=== PATIENT | female | born 1965 | race Caucasian/White ===

== ENCOUNTER 2021-09-02 12:08 | Inpatient (IN) | payer MEDICAID, OTHER ==
[~2021-09-02] VITALS: Ht 167.6 cm; Wt 109.0 kg
[2021-09-02 12:55] LABS: Basophils # (auto) 0.1 10 ^3/uL (0-0.2); Basophils % (auto) 0.8 % (0.0-2.0); Eosinophils # (auto) 0 10 ^3/uL (0-0.8); Eosinophils % (auto) 0.2 % (0.0-7.0); Hematocrit 50.2 % (36.0-46.0); Hemoglobin 16.6 g/dL (12.2-16.2); Lymphocytes # (auto) 1.5 10 ^3/uL (0.4-5.4); Lymphocytes % (auto) 9.5 % (10.0-50.0); Mean Corpuscular Hemoglobin 29.1 pg (28.0-32.0); Mean Corpuscular Hgb Conc. 33.1 g/dL (32.0-36.0); Mean Corpuscular Volume 87.8 fL (80.0-100.0); Monocytes # (auto) 0.9 10 ^3/uL (0-1.3); Monocytes % (auto) 6.1 % (0.0-12.0); Neutrophils # (auto) 12.9 10 ^3/uL (1.6-8.6); Neutrophils % (auto) 83.4 % (37.0-80.0); Nucleated Red Blood Cells % 0.3 %; Red Blood Cells 5.71 10^6/uL (4.0-5.20); Red Cell Distribution Width 15.1 % (11.8-14.3); White Blood Cell 15.4 10^3/uL (4.4-10.8)
[2021-09-02 13:14] LABS: Alanine Aminotransferase 18 U/L (13-56); Albumin 3.8 g/dL (3.4-5.0); Anion Gap 18 (5-15); Aspartate Aminotransferase 10 U/L (15-37); Blood Urea Nitrogen 38 mg/dL (7-18); Calcium 10.2 mg/dL (8.5-10.1); Carbon Dioxide 16 mmol/L (21-32); Chloride 113 mmol/L (98-107); GFR African American 102 mL/min; GFR Non-African American 84 mL/min; Glucose 306 mg/dL (74-106); Magnesium 2.1 mg/dL (1.6-2.6); Potassium 3.9 mmol/L (3.5-5.1); Sodium 147 mmol/L (136-145)
[2021-09-02 13:17] LABS: Alkaline Phosphatase 101 U/L (45-117); Bilirubin, Total 0.8 mg/dL (0.2-1.0); Total Protein 7.9 g/dL (6.4-8.2)
[2021-09-02] MEDS ORDERED: SODIUM CHLORIDE 0.9% 1,000 ML IV ONE ×2 (16:00→17:40)
[2021-09-02 17:30] LABS: Urine Bacteria NONE SEEN /hpf (None Seen); Urine Blood 3+ /uL (Negative); Urine Mucus FEW (None Seen); Urine Specific Gravity 1.032 (1.001-1.035); Urine WBC 157 /hpf (0 - 5)
[2021-09-02] MEDS ORDERED: cefTRIAXone 1GM/50ML D5W 50 ML IV ONE (18:45)
[2021-09-02] MEDS ORDERED: ACETAMINOPHEN 325 MG TAB PO PRN (23:00)
[2021-09-02] MEDS ORDERED: DEXTROSE (50%) 50ML SYRG IV PRN (23:00)
[2021-09-02] MEDS ORDERED: InsuLIN R (HUMAN) 100 UNITS in SODIUM CHL 0.9% 99 ML IV SCH (23:00)
[2021-09-02] MEDS ORDERED: HYDROcodone-ACET 5/325MG TAB PO PRN (23:00)
[2021-09-02] MEDS ORDERED: IOHEXOL 350 MG/ML 100ML IJ ONE (23:24)
[2021-09-02] MEDS ORDERED: MORPHINE SULFATE INJ 2 MG/ml SYRG IV PRN (23:30)
[2021-09-02] MEDS ORDERED: ONDANSETRON HCL 4 MG/2 ML VIAL IV PRN (23:30)
[2021-09-02 23:38] LABS: Basophils # (auto) 0.1 10 ^3/uL (0-0.2); Basophils % (auto) 0.8 % (0.0-2.0); Eosinophils # (auto) 0 10 ^3/uL (0-0.8); Eosinophils % (auto) 0.2 % (0.0-7.0); Hematocrit 44.2 % (36.0-46.0); Hemoglobin 14.7 g/dL (12.2-16.2); Lymphocytes # (auto) 1.4 10 ^3/uL (0.4-5.4); Lymphocytes % (auto) 11.8 % (10.0-50.0); Mean Corpuscular Hemoglobin 29.2 pg (28.0-32.0); Mean Corpuscular Hgb Conc. 33.1 g/dL (32.0-36.0); Mean Corpuscular Volume 88.1 fL (80.0-100.0); Monocytes # (auto) 0.9 10 ^3/uL (0-1.3); Monocytes % (auto) 7.7 % (0.0-12.0); Neutrophils # (auto) 9.3 10 ^3/uL (1.6-8.6); Neutrophils % (auto) 79.5 % (37.0-80.0); Red Blood Cells 5.02 10^6/uL (4.0-5.20); Red Cell Distribution Width 14.9 % (11.8-14.3); White Blood Cell 11.7 10^3/uL (4.4-10.8)
[2021-09-02] MEDS: SODIUM CHLORIDE 0.9% 1,000 ML IV SCH (23:47)
[2021-09-03] MEDS ORDERED: ACCU-CHEK COMFORT CURVE STRIP VI SCH
[2021-09-03 00:01] LABS: BUN/Creatinine Ratio 41.9; Calcium 9.2 mg/dL (8.5-10.1); Magnesium 1.9 mg/dL (1.6-2.6); Phosphorus 2.7 mg/dL (2.5-4.90); Potassium 3.5 mmol/L (3.5-5.1)
[2021-09-03] MEDS ORDERED: InsuLIN REG 1unit/0.01ml Soln (100units/ml) ONE (00:16)
[2021-09-03 02:56] LABS: BUN/Creatinine Ratio 46.6; Calcium 9.5 mg/dL (8.5-10.1); Potassium 4.2 mmol/L (3.5-5.1)
[2021-09-03] MEDS ORDERED: SODIUM CHLORIDE 0.9% 1,000 ML IV SCH (05:00)
[2021-09-03] MEDS: SODIUM CHLORIDE 0.9% 1,000 ML IV SCH (05:56)
[2021-09-03] MEDS: ACCU-CHEK COMFORT CURVE STRIP VI SCH ×4 (05:59→23:59)
[2021-09-03] MEDS: InsuLIN REG 1unit/0.01ml Soln (100units/ml) SC SCH ×3 (06:04→18:03)
[2021-09-03 07:50] LABS: Basophils # (auto) 0 10 ^3/uL (0-0.2); Basophils % (auto) 0.5 % (0.0-2.0); Eosinophils # (auto) 0 10 ^3/uL (0-0.8); Eosinophils % (auto) 0.4 % (0.0-7.0); Hematocrit 47.9 % (36.0-46.0); Hemoglobin 15.8 g/dL (12.2-16.2); Lymphocytes # (auto) 1.5 10 ^3/uL (0.4-5.4); Lymphocytes % (auto) 13.8 % (10.0-50.0); Mean Corpuscular Hemoglobin 29.2 pg (28.0-32.0); Mean Corpuscular Hgb Conc. 33.1 g/dL (32.0-36.0); Mean Corpuscular Volume 88.3 fL (80.0-100.0); Monocytes # (auto) 0.9 10 ^3/uL (0-1.3); Monocytes % (auto) 8.3 % (0.0-12.0); Neutrophils # (auto) 8.2 10 ^3/uL (1.6-8.6); Nucleated Red Blood Cells % 0.3 %; Red Blood Cells 5.42 10^6/uL (4.0-5.20); Red Cell Distribution Width 15.1 % (11.8-14.3); White Blood Cell 10.6 10^3/uL (4.4-10.8)
[2021-09-03 08:07] LABS: Calcium 9.7 mg/dL (8.5-10.1); Magnesium 2.1 mg/dL (1.6-2.6); Potassium 3.7 mmol/L (3.5-5.1)
[2021-09-03 08:10] LABS: BUN/Creatinine Ratio 39.7; Phosphorus 2.9 mg/dL (2.5-4.90)
[2021-09-03 10:16] VITALS: BP 141/86
[2021-09-03] MEDS: cefTRIAXone 1GM/50ML D5W 50 ML IV SCH (10:38)
[2021-09-03 10:39] LABS: BUN/Creatinine Ratio 33.3; Calcium 9.8 mg/dL (8.5-10.1); Potassium 3.2 mmol/L (3.5-5.1)
[2021-09-03] MEDS ORDERED: SOD CHL 0.45% 1,000 ML IV SCH (10:45)
[2021-09-03 11:41] VITALS: BP 141/86
[2021-09-03] MEDS: ENOXAPARIN SOD 40 MG/0.4 ML SYRINGE SC SCH (12:39)
[2021-09-03] MEDS: SOD CHL 0.45% 1,000 ML IV SCH (12:40)
[2021-09-03] MEDS: POTASSIUM CHL 20MEQ/100ML 100 ML IV SCH ×2 (12:40→15:01)
[2021-09-03 14:16] LABS: BUN/Creatinine Ratio 46.1; Calcium 9.5 mg/dL (8.5-10.1); Potassium 3.4 mmol/L (3.5-5.1)
[2021-09-03 14:35] VITALS: BP 140/77
[2021-09-03 17:45] VITALS: BP 144/80
[2021-09-03 20:00] VITALS: BP 150/82
[2021-09-03 22:00] VITALS: BP 150/82
[2021-09-03 22:44] LABS: BUN/Creatinine Ratio 41.8; Calcium 9.3 mg/dL (8.5-10.1); Potassium 3.4 mmol/L (3.5-5.1)
[2021-09-04] MEDS: InsuLIN REG 1unit/0.01ml Soln (100units/ml) SC SCH ×5 (00:03→23:32)
[2021-09-04] MEDS: SOD CHL 0.45% 1,000 ML IV SCH ×3 (02:36→18:38)
[2021-09-04 05:00] VITALS: BP 150/85
[2021-09-04] MEDS ORDERED: SODIUM CHLORIDE 0.9% 500 ML IV ONE (06:00)
[2021-09-04 06:31] LABS: Basophils # (auto) 0 10 ^3/uL (0-0.2); Basophils % (auto) 0.4 % (0.0-2.0); Eosinophils # (auto) 0.2 10 ^3/uL (0-0.8); Eosinophils % (auto) 1.9 % (0.0-7.0); Hematocrit 40.4 % (36.0-46.0); Hemoglobin 13.7 g/dL (12.2-16.2); Lymphocytes # (auto) 1.9 10 ^3/uL (0.4-5.4); Lymphocytes % (auto) 21.5 % (10.0-50.0); Mean Corpuscular Hemoglobin 29.9 pg (28.0-32.0); Mean Corpuscular Hgb Conc. 33.9 g/dL (32.0-36.0); Mean Corpuscular Volume 88.3 fL (80.0-100.0); Monocytes # (auto) 0.8 10 ^3/uL (0-1.3); Neutrophils # (auto) 5.9 10 ^3/uL (1.6-8.6); Neutrophils % (auto) 67.2 % (37.0-80.0); Nucleated Red Blood Cells % 0.1 %; Red Blood Cells 4.58 10^6/uL (4.0-5.20); Red Cell Distribution Width 14.9 % (11.8-14.3); White Blood Cell 8.7 10^3/uL (4.4-10.8)
[2021-09-04] MEDS: ACCU-CHEK COMFORT CURVE STRIP VI SCH ×4 (06:38→23:32)
[2021-09-04 06:48] LABS: BUN/Creatinine Ratio 46.2; Calcium 8.7 mg/dL (8.5-10.1); Magnesium 1.8 mg/dL (1.6-2.6); Phosphorus 3.4 mg/dL (2.5-4.90)
[2021-09-04 06:54] LABS: Potassium 2.9 mmol/L (3.5-5.1)
[2021-09-04 08:00] VITALS: BP_SYST 136; BP_SYST 150; BP_DIAS 82; BP_DIAS 83
[2021-09-04] MEDS: ENOXAPARIN SOD 40 MG/0.4 ML SYRINGE SC SCH (09:11)
[2021-09-04] MEDS: cefTRIAXone 1GM/50ML D5W 50 ML IV SCH (09:11)
[2021-09-04 09:17] LABS: Calcium 8.8 mg/dL (8.5-10.1)
[2021-09-04 11:59] VITALS: BP 151/88
[2021-09-04] MEDS: POTASSIUM CHL 20MEQ/100ML 100 ML IV SCH ×3 (13:48→18:38)
[2021-09-04 14:17] LABS: BUN/Creatinine Ratio 35.6; Calcium 8.9 mg/dL (8.5-10.1); Potassium 3.1 mmol/L (3.5-5.1)
[2021-09-04 16:00] VITALS: BP 152/86
[2021-09-04] MEDS: TEMAZEPAM 15 MG CAP PO PRN (21:22)
[2021-09-04 21:53] VITALS: BP 150/100
[2021-09-04 23:24] LABS: Folate (Folic Acid) 12.32 ng/mL (5.38-24)
[2021-09-05] VITALS (7 sets, daily range): BP systolic 137–164; BP diastolic 74–101
[2021-09-05] MEDS: TEMAZEPAM 15 MG CAP PO PRN (01:48)
[2021-09-05] MEDS: SOD CHL 0.45% 1,000 ML IV SCH ×2 (04:31→13:26)
[2021-09-05] MEDS: hydrALAZINE HCL 10 MG TAB PO PRN (05:58)
[2021-09-05] MEDS: ACCU-CHEK COMFORT CURVE STRIP VI SCH ×3 (06:41→18:16)
[2021-09-05] MEDS: InsuLIN REG 1unit/0.01ml Soln (100units/ml) SC SCH ×3 (06:41→18:16)
[2021-09-05 07:16] LABS: Basophils # (auto) 0 10 ^3/uL (0-0.2); Basophils % (auto) 0.3 % (0.0-2.0); Eosinophils # (auto) 0.2 10 ^3/uL (0-0.8); Eosinophils % (auto) 2.6 % (0.0-7.0); Hematocrit 41.5 % (36.0-46.0); Hemoglobin 14.1 g/dL (12.2-16.2); Lymphocytes # (auto) 1.5 10 ^3/uL (0.4-5.4); Lymphocytes % (auto) 18.2 % (10.0-50.0); Mean Corpuscular Hemoglobin 29.5 pg (28.0-32.0); Mean Corpuscular Hgb Conc. 33.9 g/dL (32.0-36.0); Monocytes # (auto) 0.6 10 ^3/uL (0-1.3); Monocytes % (auto) 7.1 % (0.0-12.0); Neutrophils # (auto) 5.8 10 ^3/uL (1.6-8.6); Neutrophils % (auto) 71.8 % (37.0-80.0); Nucleated Red Blood Cells % 0.2 %; Red Blood Cells 4.77 10^6/uL (4.0-5.20); Red Cell Distribution Width 14.8 % (11.8-14.3)
[2021-09-05 07:22] LABS: Magnesium 1.5 mg/dL (1.6-2.6); Phosphorus 3.6 mg/dL (2.5-4.90)
[2021-09-05] MEDS: cefTRIAXone 1GM/50ML D5W 50 ML IV SCH (09:18)
[2021-09-05] MEDS: ENOXAPARIN SOD 40 MG/0.4 ML SYRINGE SC SCH (09:19)
[2021-09-05] MEDS: HALOPERIDOL 1 MG TAB PO SCH ×2 (13:40→23:31)
[2021-09-06] MEDS: ACCU-CHEK COMFORT CURVE STRIP VI SCH ×5 (00:46→23:47)
[2021-09-06] MEDS: InsuLIN REG 1unit/0.01ml Soln (100units/ml) SC SCH ×5 (00:55→23:49)
[2021-09-06] MEDS: SOD CHL 0.45% 1,000 ML IV SCH ×2 (03:43→16:36)
[2021-09-06 05:00] VITALS: BP 146/82
[2021-09-06] MEDS: HALOPERIDOL 1 MG TAB PO SCH ×2 (06:06→18:00)
[2021-09-06 09:00] VITALS: BP 113/57
[2021-09-06] MEDS: cefTRIAXone 1GM/50ML D5W 50 ML IV SCH (11:06)
[2021-09-06] MEDS: MAGNESIUM SULFATE 1GM/100ML 100 ML IV SCH ×2 (12:00→13:00)
[2021-09-06] MEDS: ENOXAPARIN SOD 40 MG/0.4 ML SYRINGE SC SCH (12:10)
[2021-09-06 13:00] VITALS: BP 155/64
[2021-09-06] MEDS ORDERED: HALOPERIDOL 1 MG TAB PO ONE (13:00)
[2021-09-06] MEDS ORDERED: ENOXAPARIN SOD 100 MG/1 ML SYRINGE SC ONE (15:30)
[2021-09-06] MEDS ORDERED: ENOXAPARIN SOD 80 MG/0.8ML SYRINGE SC ONE (16:00)
[2021-09-06 17:00] VITALS: BP 136/70
[2021-09-06] MEDS: ENOXAPARIN SOD 120 MG/0.8 ML SYRINGE SC SCH (21:35)
[2021-09-06 22:00] VITALS: BP 159/82
[2021-09-06] MEDS: traZODone HCL 50 MG TAB PO SCH (22:00)
[2021-09-07 05:00] VITALS: BP 142/75
[2021-09-07] MEDS: ACCU-CHEK COMFORT CURVE STRIP VI SCH ×4 (05:42→22:00)
[2021-09-07] MEDS: InsuLIN REG 1unit/0.01ml Soln (100units/ml) SC SCH ×2 (05:52→11:32)
[2021-09-07] MEDS: HALOPERIDOL 1 MG TAB PO SCH ×2 (06:00→17:34)
[2021-09-07 06:14] LABS: Potassium 3.2 mmol/L (3.5-5.1)
[2021-09-07 06:19] LABS: BUN/Creatinine Ratio 21.4; Calcium 9.5 mg/dL (8.5-10.1); Magnesium 1.8 mg/dL (1.6-2.6)
[2021-09-07] MEDS: SOD CHL 0.45% 1,000 ML IV SCH (06:32)
[2021-09-07] MEDS: cefTRIAXone 1GM/50ML D5W 50 ML IV SCH (08:46)
[2021-09-07 09:00] VITALS: BP 144/91
[2021-09-07] MEDS: ENOXAPARIN SOD 120 MG/0.8 ML SYRINGE SC SCH (09:12)
[2021-09-07 13:00] VITALS: BP 151/82
[2021-09-07] MEDS ORDERED: POTASSIUM CHL 20 Meq TABLET PO ONE (15:45)
[2021-09-07 17:00] VITALS: BP 152/86
[2021-09-07] MEDS: metFORMIN HYDROCHLORIDE 500 MG TAB PO SCH (17:33)
[2021-09-07 21:25] VITALS: BP 156/76
[2021-09-07] MEDS: traZODone HCL 50 MG TAB PO SCH (22:00)
[2021-09-07] MEDS: APIXABAN 5 MG TAB PO SCH (22:00)
[2021-09-07] MEDS: MEGESTROL ACET 400MG/10ML ORAL SUSP PO SCH (22:00)
[2021-09-08 05:26] VITALS: BP 147/75
[2021-09-08] MEDS: HALOPERIDOL 1 MG TAB PO SCH ×2 (06:00→11:40)
[2021-09-08] MEDS: ACCU-CHEK COMFORT CURVE STRIP VI SCH ×4 (06:26→22:14)
[2021-09-08 06:49] LABS: Basophils # (auto) 0 10 ^3/uL (0-0.2); Basophils % (auto) 0.4 % (0.0-2.0); Eosinophils # (auto) 0.2 10 ^3/uL (0-0.8); Eosinophils % (auto) 2.4 % (0.0-7.0); Hematocrit 40.1 % (36.0-46.0); Hemoglobin 13.7 g/dL (12.2-16.2); Lymphocytes # (auto) 1.5 10 ^3/uL (0.4-5.4); Lymphocytes % (auto) 20.3 % (10.0-50.0); Mean Corpuscular Hemoglobin 29.6 pg (28.0-32.0); Mean Corpuscular Hgb Conc. 34.3 g/dL (32.0-36.0); Mean Corpuscular Volume 86.4 fL (80.0-100.0); Monocytes # (auto) 0.7 10 ^3/uL (0-1.3); Monocytes % (auto) 9.2 % (0.0-12.0); Neutrophils % (auto) 67.7 % (37.0-80.0); Red Blood Cells 4.64 10^6/uL (4.0-5.20); Red Cell Distribution Width 14.5 % (11.8-14.3); White Blood Cell 7.4 10^3/uL (4.4-10.8)
[2021-09-08 06:55] LABS: INR 1.07 (0.9-1.15); Partial Thromboplastin Time 25.8 sec (23.6-33.0)
[2021-09-08 07:03] LABS: BUN/Creatinine Ratio 20.8; Calcium 9.4 mg/dL (8.5-10.1); Potassium 3.3 mmol/L (3.5-5.1)
[2021-09-08] MEDS: metFORMIN HYDROCHLORIDE 500 MG TAB PO SCH ×2 (08:00→11:40)
[2021-09-08 09:00] VITALS: BP 148/78
[2021-09-08] MEDS: APIXABAN 5 MG TAB PO SCH ×2 (09:02→11:39)
[2021-09-08] MEDS: MEGESTROL ACET 400MG/10ML ORAL SUSP PO SCH ×2 (09:02→22:00)
[2021-09-08 12:39] VITALS: BP 142/61
[2021-09-08 16:43] VITALS: BP 140/71
[2021-09-08] MEDS ORDERED: LORazepam 2MG/ML-1ML VIAL IV PRN (20:15)
[2021-09-08] MEDS ORDERED: cefTRIAXone 1GM/50ML D5W 50 ML IV SCH (21:00)
[2021-09-08 22:00] VITALS: BP 119/74
[2021-09-08] MEDS: traZODone HCL 50 MG TAB PO SCH (22:13)
[2021-09-09 05:00] VITALS: BP 152/93
[2021-09-09] MEDS: HALOPERIDOL 1 MG TAB PO SCH ×3 (06:00→08:11)
[2021-09-09] MEDS ORDERED: HALOPERIDOL 1 MG TAB ONE (06:03)
[2021-09-09] MEDS: ACCU-CHEK COMFORT CURVE STRIP VI SCH ×4 (06:13→22:00)
[2021-09-09] MEDS: metFORMIN HYDROCHLORIDE 500 MG TAB PO SCH ×2 (08:10→17:43)
[2021-09-09] MEDS: APIXABAN 5 MG TAB PO SCH ×2 (08:10→22:00)
[2021-09-09] MEDS: MEGESTROL ACET 400MG/10ML ORAL SUSP PO SCH ×2 (08:18→22:00)
[2021-09-09 09:00] VITALS: BP 135/75
[2021-09-09 13:00] VITALS: BP 134/71
[2021-09-09 16:57] VITALS: BP 112/55
[2021-09-09] MEDS ORDERED: HALOPERIDOL 1 MG TAB PO ONE (18:00)
[2021-09-09 22:00] VITALS: BP 130/80
[2021-09-09] MEDS: traZODone HCL 50 MG TAB PO SCH (22:00)
[2021-09-10] MEDS: APIXABAN 5 MG TAB PO SCH ×3 (00:19→22:00)
[2021-09-10 05:00] VITALS: BP 124/77
[2021-09-10] MEDS: ACCU-CHEK COMFORT CURVE STRIP VI SCH ×4 (06:54→22:05)
[2021-09-10] MEDS: HALOPERIDOL 1 MG TAB PO SCH ×2 (06:54→18:11)
[2021-09-10] MEDS: metFORMIN HYDROCHLORIDE 500 MG TAB PO SCH ×2 (08:00→18:11)
[2021-09-10] MEDS: MEGESTROL ACET 400MG/10ML ORAL SUSP PO SCH ×2 (08:17→22:00)
[2021-09-10 09:00] VITALS: BP 101/65
[2021-09-10 13:00] VITALS: BP 113/71
[2021-09-10 17:00] VITALS: BP 103/69
[2021-09-10 21:41] VITALS: BP 145/79
[2021-09-10] MEDS: traZODone HCL 50 MG TAB PO SCH (22:00)
[2021-09-11 04:33] VITALS: BP 140/82
[2021-09-11] MEDS: HALOPERIDOL 1 MG TAB PO SCH ×2 (06:00→18:00)
[2021-09-11] MEDS: ACCU-CHEK COMFORT CURVE STRIP VI SCH ×4 (06:50→22:00)
[2021-09-11 08:00] VITALS: BP 111/59
[2021-09-11] MEDS: metFORMIN HYDROCHLORIDE 500 MG TAB PO SCH ×2 (08:00→17:56)
[2021-09-11] MEDS: MEGESTROL ACET 400MG/10ML ORAL SUSP PO SCH ×2 (10:00→22:00)
[2021-09-11] MEDS: APIXABAN 5 MG TAB PO SCH ×2 (10:00→22:00)
[2021-09-11 12:00] VITALS: BP 106/51
[2021-09-11 16:00] VITALS: BP 126/74
[2021-09-11] MEDS: Glucerna Carbsteady SHAKE Vanilla 8oz PO SCH (18:00)
[2021-09-11 21:46] VITALS: BP 118/64
[2021-09-11] MEDS: traZODone HCL 50 MG TAB PO SCH (22:00)
[2021-09-12] MEDS: HALOPERIDOL 1 MG TAB PO SCH ×2 (06:00→18:00)
[2021-09-12] MEDS: ACCU-CHEK COMFORT CURVE STRIP VI SCH ×4 (06:57→22:00)
[2021-09-12] MEDS: metFORMIN HYDROCHLORIDE 500 MG TAB PO SCH ×2 (08:00→18:00)
[2021-09-12] MEDS: Glucerna Carbsteady SHAKE Vanilla 8oz PO SCH ×3 (08:00→18:00)
[2021-09-12] MEDS: APIXABAN 5 MG TAB PO SCH ×2 (10:00→22:00)
[2021-09-12] MEDS: MEGESTROL ACET 400MG/10ML ORAL SUSP PO SCH ×2 (10:00→22:00)
[2021-09-12] MEDS: D5W/LACTATED RINGERS 1,000 ML IV SCH (12:30)
[2021-09-12 21:42] VITALS: BP 139/79
[2021-09-12] MEDS: traZODone HCL 50 MG TAB PO SCH (22:00)
[2021-09-13] MEDS: D5W/LACTATED RINGERS 1,000 ML IV SCH (01:50)
[2021-09-13 05:00] VITALS: BP 133/81
[2021-09-13 05:25] LABS: Basophils # (auto) 0.1 10 ^3/uL (0-0.2); Basophils % (auto) 0.6 % (0.0-2.0); Eosinophils # (auto) 0.2 10 ^3/uL (0-0.8); Eosinophils % (auto) 2.1 % (0.0-7.0); Hematocrit 40.9 % (36.0-46.0); Lymphocytes # (auto) 2.3 10 ^3/uL (0.4-5.4); Lymphocytes % (auto) 22.2 % (10.0-50.0); Mean Corpuscular Hemoglobin 29.6 pg (28.0-32.0); Mean Corpuscular Hgb Conc. 34.3 g/dL (32.0-36.0); Mean Corpuscular Volume 86.1 fL (80.0-100.0); Monocytes % (auto) 10.2 % (0.0-12.0); Neutrophils # (auto) 6.6 10 ^3/uL (1.6-8.6); Neutrophils % (auto) 64.9 % (37.0-80.0); Nucleated Red Blood Cells % 0.1 %; Red Blood Cells 4.75 10^6/uL (4.0-5.20); Red Cell Distribution Width 14.9 % (11.8-14.3); White Blood Cell 10.1 10^3/uL (4.4-10.8)
[2021-09-13] MEDS: HALOPERIDOL 1 MG TAB PO SCH (05:25)
[2021-09-13 05:41] LABS: Albumin 3.2 g/dL (3.4-5.0); BUN/Creatinine Ratio 31.4; Calcium 9.4 mg/dL (8.5-10.1); Potassium 3.1 mmol/L (3.5-5.1)
[2021-09-13 05:45] LABS: Bilirubin, Total 0.5 mg/dL (0.2-1.0)
[2021-09-13] MEDS: ACCU-CHEK COMFORT CURVE STRIP VI SCH ×4 (06:10→21:53)
[2021-09-13] MEDS: metFORMIN HYDROCHLORIDE 500 MG TAB PO SCH ×2 (08:00→18:00)
[2021-09-13] MEDS: Glucerna Carbsteady SHAKE Vanilla 8oz PO SCH ×3 (08:00→18:00)
[2021-09-13] MEDS: MEGESTROL ACET 400MG/10ML ORAL SUSP PO SCH ×2 (10:00→22:00)
[2021-09-13] MEDS: APIXABAN 5 MG TAB PO SCH (10:00)
[2021-09-13] MEDS: SOD CHL 0.45% 1,000 ML IV SCH ×2 (12:45→22:08)
[2021-09-13] MEDS ORDERED: POTASSIUM EFFERVESENT TAB 25 MEQ PO ONE (12:45)
[2021-09-13] MEDS ORDERED: HALOPERIDOL 1 MG TAB PO SCH (12:45)
[2021-09-13] MEDS ORDERED: FLUoxetine HCL 20 MG CAP PO ONE (12:45)
[2021-09-13] MEDS ORDERED: ENOXAPARIN SOD 100 MG/1 ML SYRINGE SC ONE (13:45)
[2021-09-13] MEDS ORDERED: levoFLOXacin 500 MG TAB PO ONE (14:00)
[2021-09-13] MEDS ORDERED: HALOPERIDOL LACTATE 5 MG/ML INJ VIAL IM ONE (15:00)
[2021-09-13 17:00] VITALS: BP 109/56
[2021-09-13 21:08] VITALS: BP 122/81
[2021-09-13] MEDS: HALOPERIDOL LACTATE 5 MG/ML INJ VIAL IM SCH (21:51)
[2021-09-13] MEDS: ENOXAPARIN SOD 100 MG/1 ML SYRINGE SC SCH (21:53)
[2021-09-13] MEDS ORDERED: HALOPERIDOL LACTATE 5 MG/ML INJ VIAL IM SCH (22:00)
[2021-09-13] MEDS: traZODone HCL 50 MG TAB PO SCH (22:00)
[2021-09-14 04:47] VITALS: BP 131/96
[2021-09-14] MEDS: ACCU-CHEK COMFORT CURVE STRIP VI SCH ×4 (05:37→21:43)
[2021-09-14 05:56] LABS: Basophils # (auto) 0 10 ^3/uL (0-0.2); Basophils % (auto) 0.5 % (0.0-2.0); Eosinophils # (auto) 0.1 10 ^3/uL (0-0.8); Eosinophils % (auto) 1.6 % (0.0-7.0); Hematocrit 41.5 % (36.0-46.0); Hemoglobin 14.2 g/dL (12.2-16.2); Lymphocytes # (auto) 1.6 10 ^3/uL (0.4-5.4); Lymphocytes % (auto) 21.3 % (10.0-50.0); Mean Corpuscular Hemoglobin 29.7 pg (28.0-32.0); Mean Corpuscular Hgb Conc. 34.2 g/dL (32.0-36.0); Mean Corpuscular Volume 86.8 fL (80.0-100.0); Monocytes # (auto) 0.8 10 ^3/uL (0-1.3); Monocytes % (auto) 10.1 % (0.0-12.0); Neutrophils # (auto) 5.1 10 ^3/uL (1.6-8.6); Neutrophils % (auto) 66.5 % (37.0-80.0); Nucleated Red Blood Cells % 0.1 %; Red Blood Cells 4.78 10^6/uL (4.0-5.20); Red Cell Distribution Width 14.6 % (11.8-14.3); White Blood Cell 7.6 10^3/uL (4.4-10.8)
[2021-09-14 06:12] LABS: Potassium 3.4 mmol/L (3.5-5.1)
[2021-09-14 06:16] LABS: BUN/Creatinine Ratio 28.2; Calcium 9.9 mg/dL (8.5-10.1)
[2021-09-14] MEDS: metFORMIN HYDROCHLORIDE 500 MG TAB PO SCH ×2 (08:00→18:00)
[2021-09-14] MEDS: Glucerna Carbsteady SHAKE Vanilla 8oz PO SCH ×3 (08:00→18:00)
[2021-09-14] MEDS: SOD CHL 0.45% 1,000 ML IV SCH ×2 (08:40→18:45)
[2021-09-14 08:41] VITALS: BP 130/76
[2021-09-14] MEDS: ENOXAPARIN SOD 100 MG/1 ML SYRINGE SC SCH ×2 (09:56→21:43)
[2021-09-14] MEDS: FLUoxetine HCL 20 MG CAP PO SCH (09:57)
[2021-09-14] MEDS: levoFLOXacin 500 MG TAB PO SCH (09:57)
[2021-09-14] MEDS: HALOPERIDOL LACTATE 5 MG/ML INJ VIAL IM SCH ×2 (09:58→21:42)
[2021-09-14] MEDS: MEGESTROL ACET 400MG/10ML ORAL SUSP PO SCH ×2 (09:58→21:55)
[2021-09-14] MEDS ORDERED: POTASSIUM EFFERVESENT TAB 25 MEQ PO SCH (10:00)
[2021-09-14] MEDS ORDERED: POTASSIUM CHL 20MEQ/100ML 100 ML IV ONE (17:45)
[2021-09-14] MEDS: POTASSIUM CHL 20 Meq TABLET PO SCH (21:55)
[2021-09-14] MEDS: traZODone HCL 50 MG TAB PO SCH (21:55)
[2021-09-14] MEDS ORDERED: APIXABAN 5 MG TAB PO SCH (22:00)
[2021-09-14 22:18] VITALS: BP 108/69
[2021-09-15 03:22] VITALS: BP 128/68
[2021-09-15] MEDS: SOD CHL 0.45% 1,000 ML IV SCH ×2 (04:36→14:45)
[2021-09-15] MEDS: ACCU-CHEK COMFORT CURVE STRIP VI SCH ×3 (06:11→17:30)
[2021-09-15 06:33] LABS: Potassium 3.3 mmol/L (3.5-5.1)
[2021-09-15 06:44] LABS: BUN/Creatinine Ratio 33.3; Calcium 9.5 mg/dL (8.5-10.1)
[2021-09-15 07:25] LABS: Basophils # (auto) 0 10 ^3/uL (0-0.2); Basophils % (auto) 0.3 % (0.0-2.0); Eosinophils # (auto) 0.1 10 ^3/uL (0-0.8); Eosinophils % (auto) 1.5 % (0.0-7.0); Hematocrit 40.4 % (36.0-46.0); Lymphocytes # (auto) 2.1 10 ^3/uL (0.4-5.4); Lymphocytes % (auto) 22.4 % (10.0-50.0); Mean Corpuscular Hgb Conc. 34.7 g/dL (32.0-36.0); Mean Corpuscular Volume 86.5 fL (80.0-100.0); Monocytes # (auto) 0.7 10 ^3/uL (0-1.3); Neutrophils # (auto) 6.3 10 ^3/uL (1.6-8.6); Neutrophils % (auto) 67.8 % (37.0-80.0); Nucleated Red Blood Cells % 0.1 %; Red Blood Cells 4.67 10^6/uL (4.0-5.20); White Blood Cell 9.3 10^3/uL (4.4-10.8)
[2021-09-15] MEDS: metFORMIN HYDROCHLORIDE 500 MG TAB PO SCH ×2 (07:59→18:30)
[2021-09-15] MEDS: Glucerna Carbsteady SHAKE Vanilla 8oz PO SCH ×3 (07:59→18:30)
[2021-09-15 08:00] VITALS: BP 177/139
[2021-09-15 08:02] VITALS: BP 177/139
[2021-09-15] MEDS: levoFLOXacin 500 MG TAB PO SCH (10:56)
[2021-09-15] MEDS: hydrALAZINE HCL 10 MG TAB PO PRN (10:56)
[2021-09-15] MEDS: HALOPERIDOL LACTATE 5 MG/ML INJ VIAL IM SCH ×2 (10:57→22:00)
[2021-09-15] MEDS: FLUoxetine HCL 20 MG CAP PO SCH (10:57)
[2021-09-15] MEDS: POTASSIUM CHL 20 Meq TABLET PO SCH ×2 (10:57→22:00)
[2021-09-15] MEDS: MEGESTROL ACET 400MG/10ML ORAL SUSP PO SCH ×2 (10:57→22:00)
[2021-09-15] MEDS: ENOXAPARIN SOD 100 MG/1 ML SYRINGE SC SCH ×2 (11:13→22:00)
[2021-09-15 13:13] VITALS: BP 98/64
[2021-09-15] MEDS ORDERED: DEXTROSE (50%) 50ML SYRG IV PRN (14:30)
[2021-09-15] MEDS: POTASSIUM EFFERVESENT TAB 25 MEQ PO ONE (16:44)
[2021-09-15] MEDS: InsuLIN REG 1unit/0.01ml Soln (100units/ml) SC SCH (18:30)
[2021-09-15] MEDS: traZODone HCL 50 MG TAB PO SCH (22:00)
[2021-09-16] MEDS: SOD CHL 0.45% 1,000 ML IV SCH ×3 (00:45→20:45)
[2021-09-16] MEDS: ACCU-CHEK COMFORT CURVE STRIP VI SCH ×4 (02:03→17:16)
[2021-09-16] MEDS: InsuLIN REG 1unit/0.01ml Soln (100units/ml) SC SCH ×4 (05:46→18:18)
[2021-09-16 05:56] VITALS: BP 138/76
[2021-09-16 06:24] LABS: Basophils # (auto) 0 10 ^3/uL (0-0.2); Basophils % (auto) 0.5 % (0.0-2.0); Eosinophils # (auto) 0.1 10 ^3/uL (0-0.8); Eosinophils % (auto) 1.8 % (0.0-7.0); Hematocrit 39.3 % (36.0-46.0); Hemoglobin 13.4 g/dL (12.2-16.2); Lymphocytes # (auto) 1.8 10 ^3/uL (0.4-5.4); Lymphocytes % (auto) 23.6 % (10.0-50.0); Mean Corpuscular Hemoglobin 29.7 pg (28.0-32.0); Mean Corpuscular Hgb Conc. 34.2 g/dL (32.0-36.0); Mean Corpuscular Volume 86.9 fL (80.0-100.0); Monocytes # (auto) 0.6 10 ^3/uL (0-1.3); Neutrophils # (auto) 5.1 10 ^3/uL (1.6-8.6); Neutrophils % (auto) 66.1 % (37.0-80.0); Nucleated Red Blood Cells % 0.1 %; Red Blood Cells 4.52 10^6/uL (4.0-5.20); Red Cell Distribution Width 14.6 % (11.8-14.3); White Blood Cell 7.7 10^3/uL (4.4-10.8)
[2021-09-16 06:38] LABS: Potassium 3.3 mmol/L (3.5-5.1)
[2021-09-16 06:42] LABS: BUN/Creatinine Ratio 25.4
[2021-09-16 07:50] VITALS: BP 135/56
[2021-09-16] MEDS: metFORMIN HYDROCHLORIDE 500 MG TAB PO SCH ×2 (08:00→18:24)
[2021-09-16] MEDS: Glucerna Carbsteady SHAKE Vanilla 8oz PO SCH ×3 (08:05→18:25)
[2021-09-16] MEDS: HALOPERIDOL LACTATE 5 MG/ML INJ VIAL IM SCH ×3 (10:00→22:00)
[2021-09-16] MEDS: ENOXAPARIN SOD 100 MG/1 ML SYRINGE SC SCH ×2 (10:07→22:00)
[2021-09-16] MEDS: FLUoxetine HCL 20 MG CAP PO SCH (10:07)
[2021-09-16] MEDS: levoFLOXacin 500 MG TAB PO SCH (10:07)
[2021-09-16] MEDS: POTASSIUM CHL 20 Meq TABLET PO SCH (10:07)
[2021-09-16] MEDS: MEGESTROL ACET 400MG/10ML ORAL SUSP PO SCH ×2 (10:18→22:00)
[2021-09-16 13:04] VITALS: BP 132/53
[2021-09-16 17:00] VITALS: BP 126/68
[2021-09-16] MEDS: POTASSIUM EFFERVESENT TAB 25 MEQ PO SCH ×2 (18:14→22:00)
[2021-09-16 20:00] VITALS: BP 134/56
[2021-09-16 22:00] VITALS: BP 129/78
[2021-09-16] MEDS: traZODone HCL 50 MG TAB PO SCH (22:00)
[2021-09-17] MEDS: InsuLIN REG 1unit/0.01ml Soln (100units/ml) SC SCH ×5 (06:00→23:19)
[2021-09-17] MEDS: ACCU-CHEK COMFORT CURVE STRIP VI SCH ×5 (06:00→23:19)
[2021-09-17] MEDS: SOD CHL 0.45% 1,000 ML IV SCH ×2 (06:41→18:06)
[2021-09-17 07:55] VITALS: BP 98/55
[2021-09-17] MEDS: metFORMIN HYDROCHLORIDE 500 MG TAB PO SCH ×2 (07:55→18:06)
[2021-09-17] MEDS: Glucerna Carbsteady SHAKE Vanilla 8oz PO SCH ×3 (07:56→18:07)
[2021-09-17 08:39] VITALS: BP 98/55
[2021-09-17] MEDS ORDERED: SODIUM CHLORIDE 0.9% 1,000 ML IV ONE (09:15)
[2021-09-17] MEDS: levoFLOXacin 500 MG TAB PO SCH (10:49)
[2021-09-17] MEDS: POTASSIUM EFFERVESENT TAB 25 MEQ PO SCH ×2 (10:49→22:00)
[2021-09-17] MEDS: ENOXAPARIN SOD 100 MG/1 ML SYRINGE SC SCH ×3 (10:49→23:23)
[2021-09-17] MEDS: MEGESTROL ACET 400MG/10ML ORAL SUSP PO SCH ×2 (10:50→22:00)
[2021-09-17] MEDS: HALOPERIDOL LACTATE 5 MG/ML INJ VIAL IM SCH ×2 (10:50→22:00)
[2021-09-17] MEDS: FLUoxetine HCL 20 MG CAP PO SCH (10:50)
[2021-09-17 10:59] LABS: Basophils # (auto) 0 10 ^3/uL (0-0.2); Basophils % (auto) 0.3 % (0.0-2.0); Eosinophils # (auto) 0.2 10 ^3/uL (0-0.8); Eosinophils % (auto) 2.4 % (0.0-7.0); Lymphocytes # (auto) 1.6 10 ^3/uL (0.4-5.4); Lymphocytes % (auto) 21.3 % (10.0-50.0); Mean Corpuscular Hemoglobin 29.6 pg (28.0-32.0); Mean Corpuscular Hgb Conc. 34.2 g/dL (32.0-36.0); Mean Corpuscular Volume 86.7 fL (80.0-100.0); Monocytes # (auto) 0.6 10 ^3/uL (0-1.3); Monocytes % (auto) 8.2 % (0.0-12.0); Neutrophils % (auto) 67.8 % (37.0-80.0); Nucleated Red Blood Cells % 0.1 %; Red Blood Cells 4.38 10^6/uL (4.0-5.20); Red Cell Distribution Width 14.9 % (11.8-14.3); White Blood Cell 7.4 10^3/uL (4.4-10.8)
[2021-09-17 11:37] LABS: BUN/Creatinine Ratio 16.5; Calcium 9.1 mg/dL (8.5-10.1); Potassium 3.6 mmol/L (3.5-5.1)
[2021-09-17 13:00] VITALS: BP 129/70
[2021-09-17] MEDS: cefTRIAXone 1GM/50ML D5W 50 ML IV SCH (13:04)
[2021-09-17 22:00] VITALS: BP 130/73
[2021-09-17] MEDS: traZODone HCL 50 MG TAB PO SCH (22:00)
[2021-09-18] MEDS: SOD CHL 0.45% 1,000 ML IV SCH ×3 (02:45→21:02)
[2021-09-18] MEDS: InsuLIN REG 1unit/0.01ml Soln (100units/ml) SC SCH ×4 (06:00→23:13)
[2021-09-18] MEDS: ACCU-CHEK COMFORT CURVE STRIP VI SCH ×4 (06:24→23:06)
[2021-09-18] MEDS: metFORMIN HYDROCHLORIDE 500 MG TAB PO SCH ×3 (08:00→18:00)
[2021-09-18] MEDS: Glucerna Carbsteady SHAKE Vanilla 8oz PO SCH ×3 (08:00→18:00)
[2021-09-18 08:08] LABS: Urine Bacteria FEW /hpf (None Seen); Urine Blood 1+ /uL (Negative); Urine Mucus FEW (None Seen); Urine Specific Gravity 1.011 (1.001-1.035); Urine WBC 416 /hpf (0 - 5)
[2021-09-18 09:00] VITALS: BP 126/74
[2021-09-18] MEDS: levoFLOXacin 500 MG TAB PO SCH ×2 (09:11→10:00)
[2021-09-18] MEDS: cefTRIAXone 1GM/50ML D5W 50 ML IV SCH (09:12)
[2021-09-18] MEDS: ENOXAPARIN SOD 100 MG/1 ML SYRINGE SC SCH ×2 (09:12→21:01)
[2021-09-18] MEDS: FLUoxetine HCL 20 MG CAP PO SCH ×2 (09:12→10:00)
[2021-09-18] MEDS: MEGESTROL ACET 400MG/10ML ORAL SUSP PO SCH ×3 (09:12→21:02)
[2021-09-18] MEDS: POTASSIUM EFFERVESENT TAB 25 MEQ PO SCH ×3 (09:12→21:02)
[2021-09-18] MEDS: HALOPERIDOL LACTATE 5 MG/ML INJ VIAL IM SCH (09:13)
[2021-09-18 17:00] VITALS: BP 119/56
[2021-09-18] MEDS ORDERED: HALOPERIDOL LACTATE 5 MG/ML INJ VIAL IM PRN (18:15)
[2021-09-18] MEDS: traZODone HCL 50 MG TAB PO SCH (21:08)
[2021-09-18 22:00] VITALS: BP 97/57
[2021-09-19 05:00] VITALS: BP 83/60
[2021-09-19] MEDS: ACCU-CHEK COMFORT CURVE STRIP VI SCH ×4 (06:02→23:46)
[2021-09-19] MEDS: InsuLIN REG 1unit/0.01ml Soln (100units/ml) SC SCH ×4 (06:07→23:46)
[2021-09-19] MEDS: SOD CHL 0.45% 1,000 ML IV SCH ×2 (08:45→17:55)
[2021-09-19 09:00] VITALS: BP 118/73
[2021-09-19] MEDS: Glucerna Carbsteady SHAKE Vanilla 8oz PO SCH ×3 (09:45→17:24)
[2021-09-19] MEDS: POTASSIUM EFFERVESENT TAB 25 MEQ PO SCH ×2 (09:45→22:19)
[2021-09-19] MEDS: cefTRIAXone 1GM/50ML D5W 50 ML IV SCH (09:46)
[2021-09-19] MEDS: levoFLOXacin 500 MG TAB PO SCH (09:46)
[2021-09-19] MEDS: metFORMIN HYDROCHLORIDE 500 MG TAB PO SCH ×2 (09:46→17:55)
[2021-09-19] MEDS: MEGESTROL ACET 400MG/10ML ORAL SUSP PO SCH ×2 (09:48→22:00)
[2021-09-19] MEDS: FLUoxetine HCL 20 MG CAP PO SCH (09:48)
[2021-09-19] MEDS: ENOXAPARIN SOD 100 MG/1 ML SYRINGE SC SCH ×2 (09:49→22:19)
[2021-09-19 13:00] VITALS: BP 128/87
[2021-09-19 17:00] VITALS: BP 144/83
[2021-09-19 22:00] VITALS: BP 133/87
[2021-09-19] MEDS: traZODone HCL 50 MG TAB PO SCH (22:19)
[2021-09-20] MEDS: SOD CHL 0.45% 1,000 ML IV SCH ×2 (04:45→15:20)
[2021-09-20 05:00] VITALS: BP 105/63
[2021-09-20] MEDS: ACCU-CHEK COMFORT CURVE STRIP VI SCH ×3 (05:40→18:27)
[2021-09-20] MEDS: InsuLIN REG 1unit/0.01ml Soln (100units/ml) SC SCH ×3 (05:41→18:22)
[2021-09-20] MEDS: Glucerna Carbsteady SHAKE Vanilla 8oz PO SCH ×3 (08:00→18:20)
[2021-09-20] MEDS: metFORMIN HYDROCHLORIDE 500 MG TAB PO SCH ×2 (08:00→18:00)
[2021-09-20] MEDS: cefTRIAXone 1GM/50ML D5W 50 ML IV SCH ×2 (08:32→09:46)
[2021-09-20 08:51] VITALS: BP 127/67
[2021-09-20] MEDS: MEGESTROL ACET 400MG/10ML ORAL SUSP PO SCH ×2 (09:47→21:44)
[2021-09-20] MEDS: ENOXAPARIN SOD 100 MG/1 ML SYRINGE SC SCH ×2 (09:47→21:43)
[2021-09-20] MEDS: POTASSIUM EFFERVESENT TAB 25 MEQ PO SCH ×2 (09:47→21:43)
[2021-09-20] MEDS: FLUoxetine HCL 20 MG CAP PO SCH (09:47)
[2021-09-20] MEDS: levoFLOXacin 500 MG TAB PO SCH (09:47)
[2021-09-20 13:00] VITALS: BP 130/58
[2021-09-20 17:00] VITALS: BP 115/74
[2021-09-20] MEDS: traZODone HCL 50 MG TAB PO SCH (21:43)
[2021-09-20 22:00] VITALS: BP 131/68
[2021-09-21] MEDS: InsuLIN REG 1unit/0.01ml Soln (100units/ml) SC SCH ×4 (00:09→18:05)
[2021-09-21] MEDS: ACCU-CHEK COMFORT CURVE STRIP VI SCH ×4 (00:11→18:13)
[2021-09-21] MEDS: SOD CHL 0.45% 1,000 ML IV SCH ×3 (01:00→20:45)
[2021-09-21 05:00] VITALS: BP 108/57
[2021-09-21 08:30] VITALS: BP 101/63
[2021-09-21] MEDS: Glucerna Carbsteady SHAKE Vanilla 8oz PO SCH ×3 (08:58→18:10)
[2021-09-21] MEDS: POTASSIUM EFFERVESENT TAB 25 MEQ PO SCH ×2 (09:07→22:42)
[2021-09-21] MEDS: MEGESTROL ACET 400MG/10ML ORAL SUSP PO SCH ×2 (09:07→22:00)
[2021-09-21] MEDS: metFORMIN HYDROCHLORIDE 500 MG TAB PO SCH ×2 (09:11→18:13)
[2021-09-21] MEDS: ENOXAPARIN SOD 100 MG/1 ML SYRINGE SC SCH ×2 (09:12→22:43)
[2021-09-21] MEDS: FLUoxetine HCL 20 MG CAP PO SCH (09:12)
[2021-09-21 12:30] VITALS: BP 98/64
[2021-09-21 17:00] VITALS: BP 124/73
[2021-09-21 22:00] VITALS: BP 135/82
[2021-09-21] MEDS: traZODone HCL 50 MG TAB PO SCH (22:42)
[2021-09-22] MEDS: InsuLIN REG 1unit/0.01ml Soln (100units/ml) SC SCH ×4 (06:24→18:30)
[2021-09-22] MEDS: SOD CHL 0.45% 1,000 ML IV SCH ×2 (06:26→16:45)
[2021-09-22] MEDS: ACCU-CHEK COMFORT CURVE STRIP VI SCH ×4 (06:26→17:45)
[2021-09-22] MEDS: Glucerna Carbsteady SHAKE Vanilla 8oz PO SCH ×3 (07:45→18:00)
[2021-09-22] MEDS: metFORMIN HYDROCHLORIDE 500 MG TAB PO SCH ×3 (08:00→18:00)
[2021-09-22] MEDS: cefTRIAXone 1GM/50ML D5W 50 ML IV SCH (08:54)
[2021-09-22 09:00] VITALS: BP_SYST 145; BP_SYST 74; BP_DIAS 46; BP_DIAS 73
[2021-09-22] MEDS: MEGESTROL ACET 400MG/10ML ORAL SUSP PO SCH ×2 (10:00→22:14)
[2021-09-22] MEDS: ENOXAPARIN SOD 100 MG/1 ML SYRINGE SC SCH ×2 (10:08→22:14)
[2021-09-22] MEDS: POTASSIUM EFFERVESENT TAB 25 MEQ PO SCH ×2 (10:09→22:14)
[2021-09-22] MEDS: FLUoxetine HCL 20 MG CAP PO SCH (10:09)
[2021-09-22 10:31] LABS: Basophils # (auto) 0.1 10 ^3/uL (0-0.2); Basophils % (auto) 1.3 % (0.0-2.0); Eosinophils # (auto) 0.2 10 ^3/uL (0-0.8); Eosinophils % (auto) 2.1 % (0.0-7.0); Hematocrit 35.3 % (36.0-46.0); Hemoglobin 12.2 g/dL (12.2-16.2); Lymphocytes # (auto) 1.2 10 ^3/uL (0.4-5.4); Lymphocytes % (auto) 16.1 % (10.0-50.0); Mean Corpuscular Hemoglobin 29.9 pg (28.0-32.0); Mean Corpuscular Hgb Conc. 34.5 g/dL (32.0-36.0); Mean Corpuscular Volume 86.5 fL (80.0-100.0); Monocytes # (auto) 0.8 10 ^3/uL (0-1.3); Monocytes % (auto) 10.2 % (0.0-12.0); Neutrophils # (auto) 5.4 10 ^3/uL (1.6-8.6); Neutrophils % (auto) 70.3 % (37.0-80.0); Red Blood Cells 4.08 10^6/uL (4.0-5.20); Red Cell Distribution Width 15.3 % (11.8-14.3); White Blood Cell 7.7 10^3/uL (4.4-10.8)
[2021-09-22 10:48] LABS: Calcium 9.5 mg/dL (8.5-10.1); Potassium 3.9 mmol/L (3.5-5.1)
[2021-09-22 13:00] VITALS: BP 90/48
[2021-09-22 17:00] VITALS: BP 135/79
[2021-09-22 20:00] VITALS: BP 126/70
[2021-09-22] MEDS: traZODone HCL 50 MG TAB PO SCH (22:13)
[2021-09-23] MEDS: ACCU-CHEK COMFORT CURVE STRIP VI SCH ×4 (00:06→17:22)
[2021-09-23] MEDS: InsuLIN REG 1unit/0.01ml Soln (100units/ml) SC SCH ×4 (00:15→17:22)
[2021-09-23] MEDS: SOD CHL 0.45% 1,000 ML IV SCH ×3 (02:45→22:45)
[2021-09-23 05:24] VITALS: BP 130/66
[2021-09-23] MEDS: Glucerna Carbsteady SHAKE Vanilla 8oz PO SCH ×3 (08:00→18:00)
[2021-09-23] MEDS: metFORMIN HYDROCHLORIDE 500 MG TAB PO SCH ×2 (08:00→18:00)
[2021-09-23 09:00] VITALS: BP 129/70
[2021-09-23] MEDS: FLUoxetine HCL 20 MG CAP PO SCH (10:11)
[2021-09-23] MEDS: cefTRIAXone 1GM/50ML D5W 50 ML IV SCH (10:11)
[2021-09-23] MEDS: ENOXAPARIN SOD 100 MG/1 ML SYRINGE SC SCH ×2 (10:12→22:13)
[2021-09-23] MEDS: MEGESTROL ACET 400MG/10ML ORAL SUSP PO SCH ×2 (10:12→22:13)
[2021-09-23] MEDS: POTASSIUM EFFERVESENT TAB 25 MEQ PO SCH ×2 (10:12→22:12)
[2021-09-23 13:00] VITALS: BP 113/52
[2021-09-23 17:00] VITALS: BP 127/75
[2021-09-23 20:00] VITALS: BP 133/79
[2021-09-23] MEDS: traZODone HCL 50 MG TAB PO SCH (22:13)
[2021-09-24] MEDS: ACCU-CHEK COMFORT CURVE STRIP VI SCH ×4 (00:13→18:00)
[2021-09-24] MEDS: InsuLIN REG 1unit/0.01ml Soln (100units/ml) SC SCH ×4 (00:15→18:00)
[2021-09-24 08:00] VITALS: BP 133/79
[2021-09-24] MEDS: Glucerna Carbsteady SHAKE Vanilla 8oz PO SCH ×3 (08:00→18:00)
[2021-09-24] MEDS: cefTRIAXone 1GM/50ML D5W 50 ML IV SCH (08:39)
[2021-09-24] MEDS: SOD CHL 0.45% 1,000 ML IV SCH ×2 (08:39→18:25)
[2021-09-24] MEDS: POTASSIUM EFFERVESENT TAB 25 MEQ PO SCH ×2 (10:00→22:00)
[2021-09-24] MEDS: ENOXAPARIN SOD 100 MG/1 ML SYRINGE SC SCH ×2 (10:00→22:22)
[2021-09-24] MEDS: FLUoxetine HCL 20 MG CAP PO SCH (10:00)
[2021-09-24] MEDS: MEGESTROL ACET 400MG/10ML ORAL SUSP PO SCH ×2 (10:00→22:00)
[2021-09-24] MEDS: OLANZapine 5 MG TAB PO SCH (18:00)
[2021-09-24 22:00] VITALS: BP 140/75
[2021-09-25] MEDS: SOD CHL 0.45% 1,000 ML IV SCH ×2 (04:45→22:33)
[2021-09-25 05:00] VITALS: BP 106/59
[2021-09-25] MEDS: ACCU-CHEK COMFORT CURVE STRIP VI SCH ×4 (06:04→17:23)
[2021-09-25] MEDS: OLANZapine 5 MG TAB PO SCH ×2 (06:33→17:24)
[2021-09-25] MEDS: InsuLIN REG 1unit/0.01ml Soln (100units/ml) SC SCH ×4 (06:33→17:40)
[2021-09-25 07:48] VITALS: BP 121/69
[2021-09-25 08:22] VITALS: BP 121/69
[2021-09-25] MEDS: Glucerna Carbsteady SHAKE Vanilla 8oz PO SCH ×3 (08:39→17:41)
[2021-09-25] MEDS: FLUoxetine HCL 20 MG CAP PO SCH ×2 (09:54→10:00)
[2021-09-25] MEDS: POTASSIUM EFFERVESENT TAB 25 MEQ PO SCH ×3 (09:54→22:00)
[2021-09-25] MEDS: MEGESTROL ACET 400MG/10ML ORAL SUSP PO SCH ×3 (09:55→22:00)
[2021-09-25 13:00] VITALS: BP 126/67
[2021-09-25 16:17] VITALS: BP 126/61
[2021-09-25 22:34] VITALS: BP 112/68
[2021-09-26] MEDS: ACCU-CHEK COMFORT CURVE STRIP VI SCH ×5 (01:53→23:59)
[2021-09-26] MEDS: InsuLIN REG 1unit/0.01ml Soln (100units/ml) SC SCH ×5 (01:53→23:58)
[2021-09-26 05:00] VITALS: BP 120/72
[2021-09-26] MEDS: OLANZapine 5 MG TAB PO SCH ×2 (07:00→18:00)
[2021-09-26] MEDS: Glucerna Carbsteady SHAKE Vanilla 8oz PO SCH ×3 (08:00→18:00)
[2021-09-26] MEDS: MEGESTROL ACET 400MG/10ML ORAL SUSP PO SCH ×2 (10:00→22:00)
[2021-09-26] MEDS: FLUoxetine HCL 20 MG CAP PO SCH (10:00)
[2021-09-26] MEDS: POTASSIUM EFFERVESENT TAB 25 MEQ PO SCH ×2 (10:00→22:00)
[2021-09-26] MEDS: SOD CHL 0.45% 1,000 ML IV SCH ×2 (10:45→20:45)
[2021-09-26] MEDS: ENOXAPARIN SOD 100 MG/1 ML SYRINGE SC SCH ×2 (10:54→22:54)
[2021-09-27] MEDS: InsuLIN REG 1unit/0.01ml Soln (100units/ml) SC SCH ×3 (05:34→18:00)
[2021-09-27] MEDS: ACCU-CHEK COMFORT CURVE STRIP VI SCH ×3 (05:34→18:00)
[2021-09-27] MEDS: OLANZapine 5 MG TAB PO SCH ×2 (05:34→18:00)
[2021-09-27] MEDS: SOD CHL 0.45% 1,000 ML IV SCH ×2 (05:34→16:45)
[2021-09-27] MEDS: Glucerna Carbsteady SHAKE Vanilla 8oz PO SCH ×3 (08:00→18:00)
[2021-09-27 08:30] VITALS: BP 94/72
[2021-09-27] MEDS: FLUoxetine HCL 20 MG CAP PO SCH (10:00)
[2021-09-27] MEDS: POTASSIUM EFFERVESENT TAB 25 MEQ PO SCH ×2 (10:00→21:37)
[2021-09-27] MEDS: MEGESTROL ACET 400MG/10ML ORAL SUSP PO SCH ×2 (10:00→21:37)
[2021-09-27] MEDS: ENOXAPARIN SOD 100 MG/1 ML SYRINGE SC SCH ×2 (10:54→21:37)
[2021-09-27 11:49] VITALS: BP 93/64
[2021-09-27 16:38] VITALS: BP 107/63
[2021-09-28] MEDS: SOD CHL 0.45% 1,000 ML IV SCH ×3 (02:45→22:45)
[2021-09-28] MEDS: InsuLIN REG 1unit/0.01ml Soln (100units/ml) SC SCH ×4 (06:00→17:07)
[2021-09-28] MEDS: ACCU-CHEK COMFORT CURVE STRIP VI SCH ×4 (06:00→17:08)
[2021-09-28] MEDS: OLANZapine 5 MG TAB PO SCH ×2 (06:20→17:07)
[2021-09-28] MEDS: Glucerna Carbsteady SHAKE Vanilla 8oz PO SCH ×3 (08:00→17:07)
[2021-09-28] MEDS: FLUoxetine HCL 20 MG CAP PO SCH (09:02)
[2021-09-28] MEDS: MEGESTROL ACET 400MG/10ML ORAL SUSP PO SCH ×2 (09:02→22:00)
[2021-09-28] MEDS: POTASSIUM EFFERVESENT TAB 25 MEQ PO SCH ×2 (09:02→22:00)
[2021-09-28] MEDS: ENOXAPARIN SOD 100 MG/1 ML SYRINGE SC SCH ×2 (09:02→22:56)
[2021-09-28 17:00] VITALS: BP 117/73
[2021-09-28 22:00] VITALS: BP 125/95
[2021-09-29] MEDS: ACCU-CHEK COMFORT CURVE STRIP VI SCH ×5 (00:05→23:34)
[2021-09-29] MEDS: InsuLIN REG 1unit/0.01ml Soln (100units/ml) SC SCH ×5 (00:09→23:35)
[2021-09-29] MEDS: MIRTAZAPINE 30 MG TAB PO PRN (01:03)
[2021-09-29 05:00] VITALS: BP 126/74
[2021-09-29] MEDS: OLANZapine 5 MG TAB PO SCH ×2 (06:07→18:14)
[2021-09-29] MEDS ORDERED: fentaNYL CITRATE 100 MCG/2 ML VL ONE (08:06)
[2021-09-29] MEDS ORDERED: diphenhdrAMINE HCL 50 MG/1 ML VL ONE (08:06)
[2021-09-29] MEDS ORDERED: SODIUM CHLORIDE LOCK 0 ML ONE (08:06)
[2021-09-29] MEDS ORDERED: LIDOCAINE VISCOUS 2% 15ML UD ONE (08:06)
[2021-09-29] MEDS ORDERED: MIDAZOLAM HCL 5 MG/ML-1ML VIAL ONE (08:06)
[2021-09-29] MEDS: Glucerna Carbsteady SHAKE Vanilla 8oz PO SCH ×3 (08:56→18:14)
[2021-09-29] MEDS: SOD CHL 0.45% 1,000 ML IV SCH ×2 (08:57→18:17)
[2021-09-29 09:00] VITALS: BP 110/48
[2021-09-29] MEDS: FLUoxetine HCL 20 MG CAP PO SCH (09:34)
[2021-09-29] MEDS: ENOXAPARIN SOD 100 MG/1 ML SYRINGE SC SCH ×2 (09:34→21:44)
[2021-09-29] MEDS: POTASSIUM EFFERVESENT TAB 25 MEQ PO SCH ×2 (09:34→21:06)
[2021-09-29] MEDS: MEGESTROL ACET 400MG/10ML ORAL SUSP PO SCH ×2 (09:34→21:06)
[2021-09-29 13:00] VITALS: BP 125/79
[2021-09-29 17:00] VITALS: BP 116/73
[2021-09-29 21:33] VITALS: BP 136/79
[2021-09-30] MEDS: SOD CHL 0.45% 1,000 ML IV SCH ×2 (03:56→14:45)
[2021-09-30 05:00] VITALS: BP 131/71
[2021-09-30] MEDS: ACCU-CHEK COMFORT CURVE STRIP VI SCH ×4 (05:24→23:12)
[2021-09-30] MEDS: InsuLIN REG 1unit/0.01ml Soln (100units/ml) SC SCH ×4 (05:25→23:11)
[2021-09-30] MEDS: OLANZapine 5 MG TAB PO SCH ×2 (05:26→17:30)
[2021-09-30] MEDS: Glucerna Carbsteady SHAKE Vanilla 8oz PO SCH ×3 (07:32→17:30)
[2021-09-30 09:22] VITALS: BP 134/80
[2021-09-30] MEDS: MEGESTROL ACET 400MG/10ML ORAL SUSP PO SCH ×3 (09:30→21:42)
[2021-09-30] MEDS: FLUoxetine HCL 20 MG CAP PO SCH (09:30)
[2021-09-30] MEDS: POTASSIUM EFFERVESENT TAB 25 MEQ PO SCH ×2 (09:30→21:41)
[2021-09-30] MEDS: ENOXAPARIN SOD 100 MG/1 ML SYRINGE SC SCH (09:30)
[2021-09-30 13:00] VITALS: BP 122/75
[2021-09-30 17:00] VITALS: BP 118/78
[2021-09-30] MEDS: MIRTAZAPINE 30 MG TAB PO PRN (20:27)
[2021-09-30] MEDS: APIXABAN 5 MG TAB PO SCH (21:41)
[2021-09-30 21:47] VITALS: BP 117/67
[2021-10-01] MEDS: SOD CHL 0.45% 1,000 ML IV SCH ×3 (00:45→20:45)
[2021-10-01 05:07] VITALS: BP 135/75
[2021-10-01] MEDS: ACCU-CHEK COMFORT CURVE STRIP VI SCH ×3 (05:26→18:05)
[2021-10-01] MEDS: InsuLIN REG 1unit/0.01ml Soln (100units/ml) SC SCH ×3 (05:32→18:08)
[2021-10-01] MEDS: OLANZapine 5 MG TAB PO SCH ×2 (05:38→18:15)
[2021-10-01] MEDS: Glucerna Carbsteady SHAKE Vanilla 8oz PO SCH ×3 (08:26→18:05)
[2021-10-01] MEDS: FLUoxetine HCL 20 MG CAP PO SCH (10:00)
[2021-10-01] MEDS: MEGESTROL ACET 400MG/10ML ORAL SUSP PO SCH ×2 (10:00→21:09)
[2021-10-01] MEDS: APIXABAN 5 MG TAB PO SCH ×2 (10:00→21:08)
[2021-10-01] MEDS: POTASSIUM EFFERVESENT TAB 25 MEQ PO SCH ×2 (10:00→21:08)
[2021-10-01] MEDS: MIRTAZAPINE 30 MG TAB PO PRN (21:08)
[2021-10-02] MEDS: ACCU-CHEK COMFORT CURVE STRIP VI SCH ×4 (05:21→17:36)
[2021-10-02] MEDS: InsuLIN REG 1unit/0.01ml Soln (100units/ml) SC SCH ×4 (05:23→17:37)
[2021-10-02] MEDS: SOD CHL 0.45% 1,000 ML IV SCH ×3 (05:23→16:47)
[2021-10-02] MEDS: OLANZapine 5 MG TAB PO SCH ×2 (06:29→17:36)
[2021-10-02] MEDS: Glucerna Carbsteady SHAKE Vanilla 8oz PO SCH ×3 (08:13→17:36)
[2021-10-02 08:43] VITALS: BP 125/71
[2021-10-02] MEDS: POTASSIUM EFFERVESENT TAB 25 MEQ PO SCH ×2 (10:00→21:08)
[2021-10-02] MEDS: FLUoxetine HCL 20 MG CAP PO SCH (10:42)
[2021-10-02] MEDS: APIXABAN 5 MG TAB PO SCH ×2 (10:42→21:08)
[2021-10-02] MEDS: MEGESTROL ACET 400MG/10ML ORAL SUSP PO SCH ×2 (10:42→21:08)
[2021-10-02 12:30] VITALS: BP 126/78
[2021-10-02 16:30] VITALS: BP_SYST 116; BP_SYST 98; BP_DIAS 66; BP_DIAS 77
[2021-10-02] MEDS: MIRTAZAPINE 30 MG TAB PO PRN (21:08)
[2021-10-02 22:00] VITALS: BP 145/75
[2021-10-03] MEDS: ACCU-CHEK COMFORT CURVE STRIP VI SCH ×4 (00:32→17:31)
[2021-10-03] MEDS: InsuLIN REG 1unit/0.01ml Soln (100units/ml) SC SCH ×5 (00:33→23:18)
[2021-10-03] MEDS: SOD CHL 0.45% 1,000 ML IV SCH ×3 (02:45→21:46)
[2021-10-03 05:00] VITALS: BP 142/83
[2021-10-03] MEDS: OLANZapine 5 MG TAB PO SCH ×2 (06:13→17:31)
[2021-10-03] MEDS: MEGESTROL ACET 400MG/10ML ORAL SUSP PO SCH ×2 (09:51→21:45)
[2021-10-03] MEDS: Glucerna Carbsteady SHAKE Vanilla 8oz PO SCH ×3 (09:51→17:31)
[2021-10-03] MEDS: POTASSIUM EFFERVESENT TAB 25 MEQ PO SCH ×2 (09:51→21:46)
[2021-10-03] MEDS: APIXABAN 5 MG TAB PO SCH ×2 (09:51→21:45)
[2021-10-03] MEDS: FLUoxetine HCL 20 MG CAP PO SCH (09:52)
[2021-10-03 22:00] VITALS: BP 100/61
[2021-10-03] MEDS: MIRTAZAPINE 30 MG TAB PO PRN (23:18)
[2021-10-04 05:00] VITALS: BP 129/78
[2021-10-04] MEDS: ACCU-CHEK COMFORT CURVE STRIP VI SCH ×5 (06:00→23:47)
[2021-10-04] MEDS: InsuLIN REG 1unit/0.01ml Soln (100units/ml) SC SCH ×4 (06:07→23:51)
[2021-10-04] MEDS: OLANZapine 5 MG TAB PO SCH ×2 (06:08→17:38)
[2021-10-04] MEDS: Glucerna Carbsteady SHAKE Vanilla 8oz PO SCH ×3 (08:14→17:38)
[2021-10-04] MEDS: SOD CHL 0.45% 1,000 ML IV SCH ×2 (08:45→17:40)
[2021-10-04 09:00] VITALS: BP 98/69
[2021-10-04] MEDS: APIXABAN 5 MG TAB PO SCH ×2 (09:33→21:12)
[2021-10-04] MEDS: MEGESTROL ACET 400MG/10ML ORAL SUSP PO SCH ×2 (09:33→21:35)
[2021-10-04] MEDS: POTASSIUM EFFERVESENT TAB 25 MEQ PO SCH ×2 (09:33→21:48)
[2021-10-04] MEDS: FLUoxetine HCL 20 MG CAP PO SCH (09:34)
[2021-10-04 12:58] VITALS: BP 111/69
[2021-10-04 16:36] VITALS: BP 116/61
[2021-10-04] MEDS: MIRTAZAPINE 30 MG TAB PO PRN (21:14)
[2021-10-04 21:57] VITALS: BP 108/71
[2021-10-05] MEDS: SOD CHL 0.45% 1,000 ML IV SCH ×2 (04:45→14:45)
[2021-10-05 05:00] VITALS: BP 106/74
[2021-10-05 05:19] LABS: Calcium 9.4 mg/dL (8.5-10.1)
[2021-10-05 05:21] LABS: BUN/Creatinine Ratio 31.1
[2021-10-05] MEDS: InsuLIN REG 1unit/0.01ml Soln (100units/ml) SC SCH ×3 (06:01→17:12)
[2021-10-05] MEDS: OLANZapine 5 MG TAB PO SCH ×2 (06:07→17:15)
[2021-10-05] MEDS: ACCU-CHEK COMFORT CURVE STRIP VI SCH ×3 (06:07→17:21)
[2021-10-05] MEDS: MEGESTROL ACET 400MG/10ML ORAL SUSP PO SCH ×2 (10:00→22:00)
[2021-10-05] MEDS: POTASSIUM EFFERVESENT TAB 25 MEQ PO SCH ×2 (10:00→22:00)
[2021-10-05] MEDS: APIXABAN 5 MG TAB PO SCH ×2 (10:31→22:16)
[2021-10-05] MEDS: FLUoxetine HCL 20 MG CAP PO SCH (10:31)
[2021-10-05] MEDS: Glucerna Carbsteady SHAKE Vanilla 8oz PO SCH ×3 (10:34→18:00)
[2021-10-05 17:36] VITALS: BP 106/68
[2021-10-05 21:08] VITALS: BP 139/76
[2021-10-05] MEDS: MIRTAZAPINE 30 MG TAB PO PRN (22:17)
[2021-10-06] MEDS: SOD CHL 0.45% 1,000 ML IV SCH ×3 (00:45→20:45)
[2021-10-06 05:29] VITALS: BP 117/72
[2021-10-06] MEDS: ACCU-CHEK COMFORT CURVE STRIP VI SCH ×5 (05:34→23:36)
[2021-10-06] MEDS: InsuLIN REG 1unit/0.01ml Soln (100units/ml) SC SCH ×5 (05:34→23:56)
[2021-10-06] MEDS: OLANZapine 5 MG TAB PO SCH ×2 (06:30→18:07)
[2021-10-06] MEDS: Glucerna Carbsteady SHAKE Vanilla 8oz PO SCH ×3 (08:41→18:07)
[2021-10-06] MEDS: MEGESTROL ACET 400MG/10ML ORAL SUSP PO SCH ×2 (08:48→22:00)
[2021-10-06] MEDS: POTASSIUM EFFERVESENT TAB 25 MEQ PO SCH (08:48)
[2021-10-06] MEDS: FLUoxetine HCL 20 MG CAP PO SCH (08:48)
[2021-10-06] MEDS: APIXABAN 5 MG TAB PO SCH ×2 (08:48→22:00)
[2021-10-06 09:16] VITALS: BP 117/72
[2021-10-06 12:36] VITALS: BP 120/64
[2021-10-06 16:47] VITALS: BP 118/68
[2021-10-06 22:00] VITALS: BP 95/64
[2021-10-07] MEDS: SOD CHL 0.45% 1,000 ML IV SCH ×3 (02:11→16:45)
[2021-10-07 05:00] VITALS: BP 126/76
[2021-10-07] MEDS: POTASSIUM EFFERVESENT TAB 25 MEQ PO SCH ×3 (05:14→23:01)
[2021-10-07] MEDS: ACCU-CHEK COMFORT CURVE STRIP VI SCH ×3 (05:14→18:00)
[2021-10-07] MEDS: InsuLIN REG 1unit/0.01ml Soln (100units/ml) SC SCH ×3 (05:27→18:06)
[2021-10-07] MEDS: OLANZapine 5 MG TAB PO SCH ×2 (06:45→18:00)
[2021-10-07] MEDS: Glucerna Carbsteady SHAKE Vanilla 8oz PO SCH ×3 (08:00→18:00)
[2021-10-07 09:00] VITALS: BP_SYST 107; BP_SYST 121; BP_DIAS 58; BP_DIAS 82
[2021-10-07] MEDS: MEGESTROL ACET 400MG/10ML ORAL SUSP PO SCH ×2 (10:00→22:00)
[2021-10-07] MEDS: FLUoxetine HCL 20 MG CAP PO SCH (10:15)
[2021-10-07] MEDS: APIXABAN 5 MG TAB PO SCH ×2 (10:15→23:01)
[2021-10-07] MEDS ORDERED: D5W/SOD CHL 0.45%/KCL 20MEQ 1,000 ML IV ONE (11:50)
[2021-10-07 13:00] VITALS: BP 111/59
[2021-10-07 17:00] VITALS: BP 129/64
[2021-10-07 21:14] VITALS: BP 138/83
[2021-10-08] MEDS: SOD CHL 0.45% 1,000 ML IV SCH ×3 (02:45→22:30)
[2021-10-08] MEDS: ACCU-CHEK COMFORT CURVE STRIP VI SCH ×5 (05:09→23:55)
[2021-10-08 05:12] VITALS: BP 115/61
[2021-10-08] MEDS: InsuLIN REG 1unit/0.01ml Soln (100units/ml) SC SCH ×4 (05:14→18:09)
[2021-10-08 05:59] LABS: Basophils # (auto) 0.1 10 ^3/uL (0-0.2); Basophils % (auto) 0.9 % (0.0-2.0); Eosinophils # (auto) 0.2 10 ^3/uL (0-0.8); Eosinophils % (auto) 1.3 % (0.0-7.0); Hematocrit 35.2 % (36.0-46.0); Hemoglobin 12.3 g/dL (12.2-16.2); Lymphocytes # (auto) 2.2 10 ^3/uL (0.4-5.4); Lymphocytes % (auto) 18.1 % (10.0-50.0); Mean Corpuscular Volume 85.7 fL (80.0-100.0); Monocytes # (auto) 0.7 10 ^3/uL (0-1.3); Monocytes % (auto) 5.8 % (0.0-12.0); Neutrophils # (auto) 8.8 10 ^3/uL (1.6-8.6); Neutrophils % (auto) 73.9 % (37.0-80.0); Red Blood Cells 4.11 10^6/uL (4.0-5.20); Red Cell Distribution Width 16.1 % (11.8-14.3); White Blood Cell 11.9 10^3/uL (4.4-10.8)
[2021-10-08] MEDS: OLANZapine 5 MG TAB PO SCH ×2 (06:10→18:05)
[2021-10-08 06:12] LABS: BUN/Creatinine Ratio 34.8; Calcium 9.3 mg/dL (8.5-10.1); Potassium 4.1 mmol/L (3.5-5.1)
[2021-10-08 08:00] VITALS: BP 114/68
[2021-10-08] MEDS: Glucerna Carbsteady SHAKE Vanilla 8oz PO SCH ×3 (08:00→18:00)
[2021-10-08] MEDS: MEGESTROL ACET 400MG/10ML ORAL SUSP PO SCH ×2 (10:00→22:00)
[2021-10-08] MEDS: FLUoxetine HCL 20 MG CAP PO SCH (10:54)
[2021-10-08] MEDS: POTASSIUM EFFERVESENT TAB 25 MEQ PO SCH ×2 (10:54→22:25)
[2021-10-08] MEDS: APIXABAN 5 MG TAB PO SCH ×2 (10:55→22:23)
[2021-10-08 12:11] VITALS: BP 109/59
[2021-10-08 17:20] VITALS: BP 116/58
[2021-10-08 20:00] VITALS: BP 96/67
[2021-10-08 22:00] VITALS: BP 96/67
[2021-10-09 04:39] VITALS: BP 119/67
[2021-10-09] MEDS: ACCU-CHEK COMFORT CURVE STRIP VI SCH ×3 (06:10→17:56)
[2021-10-09] MEDS: InsuLIN REG 1unit/0.01ml Soln (100units/ml) SC SCH ×4 (06:17→18:30)
[2021-10-09] MEDS: OLANZapine 5 MG TAB PO SCH ×2 (06:18→17:58)
[2021-10-09 08:00] VITALS: BP 124/79
[2021-10-09] MEDS: Glucerna Carbsteady SHAKE Vanilla 8oz PO SCH ×3 (08:04→18:26)
[2021-10-09] MEDS: SOD CHL 0.45% 1,000 ML IV SCH ×2 (08:45→18:45)
[2021-10-09] MEDS: MEGESTROL ACET 400MG/10ML ORAL SUSP PO SCH ×2 (10:00→21:43)
[2021-10-09] MEDS: POTASSIUM EFFERVESENT TAB 25 MEQ PO SCH ×2 (10:33→21:39)
[2021-10-09] MEDS: APIXABAN 5 MG TAB PO SCH ×2 (10:33→21:39)
[2021-10-09] MEDS: FLUoxetine HCL 20 MG CAP PO SCH (10:33)
[2021-10-10] MEDS: ACCU-CHEK COMFORT CURVE STRIP VI SCH ×5 (00:14→23:45)
[2021-10-10] MEDS: InsuLIN REG 1unit/0.01ml Soln (100units/ml) SC SCH ×5 (00:18→23:45)
[2021-10-10] MEDS: SOD CHL 0.45% 1,000 ML IV SCH (04:45)
[2021-10-10 05:00] VITALS: BP 119/71
[2021-10-10] MEDS: OLANZapine 5 MG TAB PO SCH ×2 (07:05→16:31)
[2021-10-10] MEDS: Glucerna Carbsteady SHAKE Vanilla 8oz PO SCH ×3 (08:00→22:22)
[2021-10-10] MEDS: FLUoxetine HCL 20 MG CAP PO SCH (08:57)
[2021-10-10] MEDS: APIXABAN 5 MG TAB PO SCH ×2 (08:58→22:09)
[2021-10-10] MEDS: POTASSIUM EFFERVESENT TAB 25 MEQ PO SCH (08:58)
[2021-10-10] MEDS: MEGESTROL ACET 400MG/10ML ORAL SUSP PO SCH (08:58)
[2021-10-10 13:26] VITALS: BP 122/74
[2021-10-10] MEDS: ACETAMINOPHEN 325 MG TAB PO PRN ×2 (16:31→23:46)
[2021-10-10 16:35] VITALS: BP 126/16
[2021-10-10 22:00] VITALS: BP 140/74
[2021-10-10] MEDS: MIRTAZAPINE 30 MG TAB PO PRN (22:09)
[2021-10-11 05:00] VITALS: BP 125/89
[2021-10-11 05:40] LABS: Basophils # (auto) 0 10 ^3/uL (0-0.2); Basophils % (auto) 0.4 % (0.0-2.0); Eosinophils # (auto) 0.2 10 ^3/uL (0-0.8); Eosinophils % (auto) 1.8 % (0.0-7.0); Hematocrit 37.3 % (36.0-46.0); Lymphocytes # (auto) 2.2 10 ^3/uL (0.4-5.4); Lymphocytes % (auto) 19.7 % (10.0-50.0); Mean Corpuscular Hemoglobin 30.2 pg (28.0-32.0); Mean Corpuscular Hgb Conc. 34.9 g/dL (32.0-36.0); Mean Corpuscular Volume 86.5 fL (80.0-100.0); Monocytes # (auto) 0.7 10 ^3/uL (0-1.3); Monocytes % (auto) 6.2 % (0.0-12.0); Neutrophils % (auto) 71.9 % (37.0-80.0); Red Blood Cells 4.31 10^6/uL (4.0-5.20); White Blood Cell 11.2 10^3/uL (4.4-10.8)
[2021-10-11] MEDS: InsuLIN REG 1unit/0.01ml Soln (100units/ml) SC SCH ×3 (05:50→18:31)
[2021-10-11] MEDS: OLANZapine 5 MG TAB PO SCH ×2 (05:51→18:27)
[2021-10-11] MEDS: ACCU-CHEK COMFORT CURVE STRIP VI SCH ×4 (05:51→21:41)
[2021-10-11 06:07] LABS: Calcium 9.3 mg/dL (8.5-10.1); Potassium 4.1 mmol/L (3.5-5.1)
[2021-10-11 06:10] LABS: BUN/Creatinine Ratio 35.1
[2021-10-11] MEDS: Glucerna Carbsteady SHAKE Vanilla 8oz PO SCH ×3 (08:00→18:10)
[2021-10-11] MEDS: APIXABAN 5 MG TAB PO SCH ×2 (09:38→21:40)
[2021-10-11] MEDS: FLUoxetine HCL 20 MG CAP PO SCH (09:38)
[2021-10-11] MEDS: ACETAMINOPHEN 325 MG TAB PO PRN ×2 (09:51→21:41)
[2021-10-11] MEDS: INSULIN LANTUS (GLARGINE) 1 /0.01ml (100units/ml) SC SCH (10:00)
[2021-10-11] MEDS ORDERED: DEXTROSE (50%) 50ML SYRG IV PRN (10:00)
[2021-10-11 14:00] VITALS: BP 111/50
[2021-10-11] MEDS: MIRTAZAPINE 30 MG TAB PO PRN (21:41)
[2021-10-11 22:00] VITALS: BP 137/77
[2021-10-11] MEDS ORDERED: InsuLIN REG 1unit/0.01ml Soln (100units/ml) SC SCH (22:00)
[2021-10-12 05:08] VITALS: BP 118/76
[2021-10-12] MEDS: OLANZapine 5 MG TAB PO SCH ×2 (05:57→17:49)
[2021-10-12] MEDS: InsuLIN REG 1unit/0.01ml Soln (100units/ml) SC SCH ×3 (06:05→17:00)
[2021-10-12] MEDS: ACCU-CHEK COMFORT CURVE STRIP VI SCH ×4 (06:06→20:58)
[2021-10-12] MEDS: Glucerna Carbsteady SHAKE Vanilla 8oz PO SCH ×3 (07:50→17:48)
[2021-10-12] MEDS: FLUoxetine HCL 20 MG CAP PO SCH (10:00)
[2021-10-12] MEDS: APIXABAN 5 MG TAB PO SCH ×2 (10:00→20:58)
[2021-10-12] MEDS: INSULIN LANTUS (GLARGINE) 1 /0.01ml (100units/ml) SC SCH (10:00)
[2021-10-12] MEDS: ACETAMINOPHEN 325 MG TAB PO PRN (12:07)
[2021-10-12 21:49] VITALS: BP 109/54
[2021-10-13 04:43] VITALS: BP 110/59
[2021-10-13] MEDS: ACETAMINOPHEN 325 MG TAB PO PRN (05:57)
[2021-10-13] MEDS: ACCU-CHEK COMFORT CURVE STRIP VI SCH ×4 (06:01→21:19)
[2021-10-13] MEDS: OLANZapine 5 MG TAB PO SCH ×2 (06:01→17:29)
[2021-10-13] MEDS: InsuLIN REG 1unit/0.01ml Soln (100units/ml) SC SCH ×3 (06:02→17:36)
[2021-10-13] MEDS ORDERED: INSULIN LANTUS (GLARGINE) 1 /0.01ml (100units/ml) SC SCH (07:00)
[2021-10-13 08:48] VITALS: BP 115/55
[2021-10-13] MEDS: Glucerna Carbsteady SHAKE Vanilla 8oz PO SCH ×3 (08:49→18:01)
[2021-10-13] MEDS: FLUoxetine HCL 20 MG CAP PO SCH (10:26)
[2021-10-13] MEDS: APIXABAN 5 MG TAB PO SCH ×2 (10:27→21:19)
[2021-10-13] MEDS: INSULIN LANTUS (GLARGINE) 1 /0.01ml (100units/ml) SC SCH (10:31)
[2021-10-13 13:00] VITALS: BP 108/83
[2021-10-13 17:35] VITALS: BP 128/84
[2021-10-13 18:20] LABS: Urine Bacteria NONE SEEN /hpf (None Seen); Urine Blood Negative /uL (Negative); Urine Specific Gravity 1.016 (1.001-1.035); Urine WBC <1 /hpf (0 - 5)
[2021-10-13 22:00] VITALS: BP 113/65
[2021-10-14 05:00] VITALS: BP 117/72
[2021-10-14] MEDS: ACCU-CHEK COMFORT CURVE STRIP VI SCH ×4 (06:43→22:34)
[2021-10-14] MEDS: InsuLIN REG 1unit/0.01ml Soln (100units/ml) SC SCH ×4 (06:44→22:38)
[2021-10-14] MEDS ORDERED: OLANZapine 5 MG TAB PO SCH (07:00)
[2021-10-14 09:00] VITALS: BP 120/73
[2021-10-14] MEDS: INSULIN LANTUS (GLARGINE) 1 /0.01ml (100units/ml) SC SCH (10:00)
[2021-10-14] MEDS: FLUoxetine HCL 20 MG CAP PO SCH (10:11)
[2021-10-14] MEDS: APIXABAN 5 MG TAB PO SCH ×2 (10:11→22:34)
[2021-10-14] MEDS: Glucerna Carbsteady SHAKE Vanilla 8oz PO SCH ×3 (10:11→17:42)
[2021-10-14 15:00] VITALS: BP 117/70
[2021-10-14 21:27] VITALS: BP 124/74
[2021-10-14] MEDS: QUEtiapine FUMARATE 100 MG TAB PO SCH (22:34)
[2021-10-15 04:56] VITALS: BP 120/64
[2021-10-15] MEDS: QUEtiapine FUMARATE 100 MG TAB PO SCH ×2 (06:33→21:19)
[2021-10-15] MEDS: ACCU-CHEK COMFORT CURVE STRIP VI SCH ×4 (06:33→22:45)
[2021-10-15] MEDS: InsuLIN REG 1unit/0.01ml Soln (100units/ml) SC SCH ×4 (06:36→22:50)
[2021-10-15 09:06] VITALS: BP 111/71
[2021-10-15] MEDS: Glucerna Carbsteady SHAKE Vanilla 8oz PO SCH ×3 (10:27→18:07)
[2021-10-15] MEDS: FLUoxetine HCL 20 MG CAP PO SCH (10:27)
[2021-10-15] MEDS: APIXABAN 5 MG TAB PO SCH ×2 (10:27→21:18)
[2021-10-15] MEDS: INSULIN LANTUS (GLARGINE) 1 /0.01ml (100units/ml) SC SCH (12:38)
[2021-10-15 13:00] VITALS: BP 125/77
[2021-10-15 17:04] VITALS: BP 121/66
[2021-10-15 20:34] VITALS: BP 103/71
[2021-10-15] MEDS: ACETAMINOPHEN 325 MG TAB PO PRN (21:20)
[2021-10-16 01:00] VITALS: BP 142/76
[2021-10-16] MEDS: QUEtiapine FUMARATE 100 MG TAB PO SCH ×2 (06:24→21:59)
[2021-10-16] MEDS: ACCU-CHEK COMFORT CURVE STRIP VI SCH ×4 (06:24→22:15)
[2021-10-16] MEDS: InsuLIN REG 1unit/0.01ml Soln (100units/ml) SC SCH ×4 (06:25→22:30)
[2021-10-16] MEDS: Glucerna Carbsteady SHAKE Vanilla 8oz PO SCH ×3 (08:00→17:35)
[2021-10-16 09:00] VITALS: BP 130/83
[2021-10-16] MEDS: APIXABAN 5 MG TAB PO SCH ×2 (10:13→21:59)
[2021-10-16] MEDS: FLUoxetine HCL 20 MG CAP PO SCH (10:14)
[2021-10-16] MEDS: INSULIN LANTUS (GLARGINE) 1 /0.01ml (100units/ml) SC SCH (10:30)
[2021-10-16 17:00] VITALS: BP 130/79
[2021-10-16 22:00] VITALS: BP 142/69
[2021-10-17 05:00] VITALS: BP 141/79
[2021-10-17] MEDS: ACETAMINOPHEN 325 MG TAB PO PRN (06:39)
[2021-10-17] MEDS: ACCU-CHEK COMFORT CURVE STRIP VI SCH ×2 (06:39→11:38)
[2021-10-17] MEDS: QUEtiapine FUMARATE 100 MG TAB PO SCH (06:39)
[2021-10-17] MEDS: InsuLIN REG 1unit/0.01ml Soln (100units/ml) SC SCH ×2 (06:44→11:38)
[2021-10-17] MEDS: Glucerna Carbsteady SHAKE Vanilla 8oz PO SCH ×2 (08:33→11:39)
[2021-10-17] MEDS: FLUoxetine HCL 20 MG CAP PO SCH (08:47)
[2021-10-17] MEDS: APIXABAN 5 MG TAB PO SCH (08:47)
[2021-10-17 09:00] VITALS: BP 115/72
[2021-10-17] MEDS: INSULIN LANTUS (GLARGINE) 1 /0.01ml (100units/ml) SC SCH (09:01)
[2021-10-17] MEDS ORDERED: FLUO20CA90 PO (12:03)
[2021-10-17] MEDS ORDERED: INSREGI SC (12:03)
[2021-10-17] MEDS ORDERED: INSLANTI SC (12:03)
[2021-10-17] MEDS ORDERED: QUET100T47 PO (12:03)
[2021-10-17] MEDS ORDERED: APIX5TAB PO (12:03)
[2021-10-17 13:00] VITALS: BP 116/80
[2021-10-17 14:22] VITALS: BP 116/80
== END 2021-10-17 16:22 | disposition home or self-care (01) | DRG 197 ==
LOC: EDBD 12:08 → ER 12:08 → TELE 22:53 → TELE-EAST 09-03 09:41 → TELE-CENTR 09-03 18:11 → TELE-WESTW 09-10 18:24 → WEST WING 09-12 02:53 → TELE-WESTW 09-24 11:52 → WEST WING 10-05 03:03
PROVIDERS: ADMIT Nurse Practitioner Family; ATTEND Hospitalist
DX: I82.411 Acute embolism and thrombosis of right femoral vein (principal); E11.10 Type 2 diabetes mellitus with ketoacidosis without coma; E87.0 Hyperosmolality and hypernatremia; I82.431 Acute embolism and thrombosis of right popliteal vein; E87.3 Alkalosis; E66.01 Morbid (severe) obesity due to excess calories; E78.5 Hyperlipidemia, unspecified; E86.0 Dehydration; E87.6 Hypokalemia; D35.00 Benign neoplasm of unspecified adrenal gland; K21.9 Gastro-esophageal reflux disease without esophagitis; N30.90 Cystitis, unspecified without hematuria; F31.30 Bipolar disorder, current episode depressed, mild or moderate severity, unspecified; R62.7 Adult failure to thrive; E87.8 Other disorders of electrolyte and fluid balance, not elsewhere classified; R41.0 Disorientation, unspecified; Z20.822 Contact with and (suspected) exposure to COVID-19; F51.04 Psychophysiologic insomnia; I10 Essential (primary) hypertension; F17.200 Nicotine dependence, unspecified, uncomplicated; N92.6 Irregular menstruation, unspecified; Z53.20 Procedure and treatment not carried out because of patient's decision for unspecified reasons; Z68.35 Body mass index [BMI] 35.0-35.9, adult; Z74.01 Bed confinement status; Z79.84 Long term (current) use of oral hypoglycemic drugs; Z91.14 Patient's other noncompliance with medication regimen; Z79.01 Long term (current) use of anticoagulants; Z91.19 Patient's noncompliance with other medical treatment and regimen; Z79.899 Other long term (current) drug therapy
CPT/HCPCS: 36415; 36600; 70450; 70551; 71045; 74176; 74177; 80048; 80053; 81001; 82010; 82088; 82533; 82570; 82607; 82746; 82805; 82962; 83036; 83605; 83735; 83835; 83930; 84100; 84156; 84244; 84402; 84403; 84443; 84484; 85025; 85610; 85730; 87040; 87086; 93005; 93970; 96361; 96365; 97110; 97116; 97163; 97530; G0378; J0696; J1815; J2250; J3480